=== PATIENT | female | born 1955 | race Caucasian/White ===

== ENCOUNTER → 2017-01-25 | Outpatient (CLI) | payer OTHER ==
[~2017-01-25] MED LIST: AMITRIPTYLINE H25 M2 PO; CLARITIN10 M2 PO; IMITREX100 MG PO; OMNARIS; PROTONIX40 M2; SUDOGEST SINUS1 EACH PO; TOPAMAX 25 MG T25 M1 PG
== END ==
LOC: CAT 01-18 16:33
DX: Z13.6 Encounter for screening for cardiovascular disorders (principal)

== ENCOUNTER → 2019-03-29 | Outpatient (CLI) | payer OTHER ==
--- NOTE | 2019-03-29 15:12 | 2DMMODE ---
[facility] [employer] [place] [address] 2 D/M-MODE ECHOCARDIOGRAM Name: KIMBERLY TIJERINA Room #: REG CL Tasha#: [id number] ������������� Admission: 03/29/19 ������������� Attend Phys: Conor Gutierrez, Discharge: ��� ������������� ��� Date of : 59 Date of Service: 03/29/19 1511 �� Report #: [id number] �������� ��������������������������������������������[id number] THIS REPORT FOR: //name// APPROVED REPORT Study performed: 03/29/2019 14:00:48 EXAM: Comprehensive 2D, Doppler, and color-flow Echocardiogram Patient Location: Out-Patient Room #: Echo lab 1 Status: routine BSA: 2.05 HR: 58 bpm BP: 142/88 mmHg Rhythm: Bradycardia Other Information Study Quality: Good Indications History Pulmonary embolism 2D Dimensions RVDd: 35.96 mm IVSd: 8.84 (7-11mm) LVOT Diam: 19.90 (18-24mm) LVDd: 48.13 mm PWd: 8.45 (7-11mm) Ascending Ao: 34.00 (22-36mm) LVDs: 35.61 (25-40mm) Aortic Root: 29.36 mm IVC: 13.00 mm Volumes Left Atrial Volume (Systole) Single Plane 4CH: 30.86 mL Single Plane 2CH: 36.88 mL LA ESV Index: 17.00 mL/m2 Aortic Valve AoV Peak Ruslan.: 1.20 m/s AO Peak Gr.: 5.71 mmHg LVOT Max P.71 mmHg LVOT Max V: 0.96 m/s EMILY Vmax: 2.50 cm2 Mitral Valve E/A Ratio: 1.1 MV Decel. Time: 233.90 ms MV E Max Ruslan.: 0.73 m/s [facility] [address] [address] 2 D/M-MODE ECHOCARDIOGRAM Name: KIMBERLY TIJERINA Room #: REG [facility]#: [id number] ������������� Admission: 03/29/19 ������������� Attend Phys: Conor Gutierrez, Discharge: ��� ������������� ��� Date of : 59 Date of Service: 03/29/19 1511 �� Report #: [id number] �������� ��������������������������������������������[id number] MV A Ruslan.: 0.66 m/s MV PHT: 67.83 ms IVRT: 92.27 ms Pulmonary Valve PV Peak Ruslan.: 0.84 m/s PV Peak Gr.: 2.85 mmHg Pulmonary Vein P Vein S: 0.68 m/s P Vein A: 0.35 m/s P Vein D: 0.56 m/s P Vein A Dur.: 92.3 msec P Vein S/D Ratio: 1.21 Tricuspid Valve TR Peak Ruslan.: 2.20 m/s TR Peak Gr.: 19.32 mmHg PA Pressure: 24.00 mmHg Left Ventricle The left ventricle is normal size. There is normal LV segmental wall motion. There is normal left ventricular wall thickness. The left ventricular systolic function is normal. The left ventricular ejection fraction is within the normal range. LVEF is 55-60%. Right Ventricle The right ventricle is normal size. The right ventricular systolic function is normal. Atria The left atrium size is normal. The right atrium size is normal. Aortic Valve The aortic valve is normal in structure. No aortic regurgitation is present. There is no aortic valvular stenosis. Mitral Valve The mitral valve is normal in structure. Trace to mild mitral regurgitation. No evidence of mitral valve stenosis. Tricuspid Valve The tricuspid valve is normal in structure. There is trace to mild tricuspid regurgitation. Estimated PAP 24 mmHg. There is no pulmonary hypertension. Pulmonic Valve The pulmonary valve is normal in structure. Trace pulmonic [address] [address] 2 D/M-MODE ECHOCARDIOGRAM Name: KIMBERLY TIJERINA Room #: REG Tasha#: [id number] ������������� Admission: 03/29/19 ������������� Attend Phys: Conor Gutierrez, Discharge: ��� ������������� ��� Date of : 59 Date of Service: 03/29/19 1511 �� Report #: [id number] �������� ��������������������������������������������[id number] regurgitation. Great Vessels The aortic root is normal in size. IVC is normal in size and collapses >50% with inspiration. Pericardium There is no pericardial effusion. <Conclusion> The left ventricle is normal size. There is normal left ventricular wall thickness. The left ventricular systolic function is normal. The right ventricle is normal size. The left atrium size is normal. The right atrium size is normal. The aortic valve is normal in structure. Trace to mild mitral regurgitation. There is trace to mild tricuspid regurgitation. Estimated PAP 24 mmHg. ��������������������������������������������� <ELECTRONICALLY SIGNED> ���������������������������������������� By: Jimbo Peters MD ��������������������������������������������� 03/29/191510 10 10 Jimbo Peters MD /INF
== END ==
LOC: CV 12:33
DX: I08.1 Rheumatic disorders of both mitral and tricuspid valves (principal); I27.82 Chronic pulmonary embolism

== ENCOUNTER → 2019-03-30 | Outpatient (CLI) | payer OTHER | LOC: CAT 12:48 | DX: Z13.6 Encounter for screening for cardiovascular disorders (principal); E78.00 Pure hypercholesterolemia, unspecified; I25.10 Atherosclerotic heart disease of native coronary artery without angina pectoris ==